=== PATIENT | female | born 1960 | race Caucasian/White ===

== ENCOUNTER 2018-10-23 07:54 | Outpatient (CLI) | payer OTHER ==
--- NOTE | 2018-10-23 10:45 | MRI ---
MRI CERVICAL SPINE WITHOUT CONTRAST: Comparison: None. History: Neck pain with weakness and numbness. Tingling in the right hand and fingers. Technique: Multiplanar, multisequence MRI images were obtained of the cervical spine without contrast. FINDINGS: Generalized disc desiccation is seen. The vertebral bodies and intervertebral discs demonstrate camron l height and alignment without fracture or subluxation. The craniocervical junction is unremarkable. The visualized cord demonstrates normal signal throughou t. The prevertebral and paraspinal soft tissues are unremarkable. C2-3: Unremarkable. C3-4: Unremarkable. C4-5: A minimal disc osteophyte complex is seen. No posterior facet arthrosis. Mild central canal kristin nosis. Mild bilateral neural foraminal stenosis. C5-6: A small disc osteophyte complex is seen. No posterior facet arthrosis. Moderate central canal s tenosis. Moderate bilateral neural foraminal stenosis. C6-7: A small disc osteophyte complex is seen. No posterior facet arthrosis. Moderate central canal s tenosis. Moderate bilateral neural foraminal stenosis. C7-T1: Unremarkable. IMPRESSION: Degenerative changes of the cervical spine as above. POS: [facility]
== END 2018-10-23 07:55 | disposition home or self-care (01) ==
LOC: SCSMRI 07:54 → EDBD 08:30
PROVIDERS: ATTEND Physical Medicine & Rehabilitation
DX: M47.22 Other spondylosis with radiculopathy, cervical region (principal)
CPT/HCPCS: 72141